=== PATIENT | female | born 1960 | race Hispanic/Latino ===

== ENCOUNTER → 2024-04-10 | Outpatient (CLI) | payer OTHER ==
--- NOTE | 2024-04-10 11:34 | HMCIMG ---
US SOFT TISSUE NECK REASON: cervical lymphadenopathy COMPARISON: None TECHNIQUE: Bilateral anterior cervical triangle ultrasound was performed. FINDINGS: There are prominent lymph nodes on the right, largest is 2.8 cm. These appear to retain normal-appearing central fatty logan. There are a few nodes on the left which are less pronounced, largest is 1.3, also within normal fatty replaced hilum. IMPRESSION: 1. Bilateral cervical lymphadenopathy more pronounced on the right.
--- NOTE | 2024-04-10 11:35 | HMCIMG ---
US ABDOMINAL COMPLETE REASON: other specified disease of liver COMPARISON: None FINDINGS: There is mild fatty infiltration of the liver. There are no focal mass lesions. The liver is not enlarged.There is a normal-appearing gallbladder. Kidneys appear normal in size and appearance. There is no evidence of mass, stone or hydronephrosis. Spleen and common duct appear normal. Aorta and inferior vena cava appear normal. The pancreas appears normal as well. IMPRESSION: 1. Mild hepatic steatosis. 2. Otherwise unremarkable exam, no focal liver mass identified.
== END | disposition home or self-care (01) ==
LOC: RAH 09:31
PROVIDERS: ATTEND Family Medicine
DX: K76.0 Fatty (change of) liver, not elsewhere classified (principal); K76.89 Other specified diseases of liver; R59.0 Localized enlarged lymph nodes; R59.1 Generalized enlarged lymph nodes
CPT/HCPCS: 76536; 76700

== ENCOUNTER → 2024-04-29 | Outpatient (CLI) | payer OTHER ==
--- NOTE | 2024-04-29 11:51 | HMCIMG ---
Diagnostic left breast mammogram and left breast ultrasound. HISTORY: ABN MAMMOGRAM COMPARISON: 03/16/2024 TECHNIQUE: Left breast digital diagnostic mammogram was performed. No additional views were obtained. FINDINGS: Parenchymal density: The breasts are almost entirely fatty. There is a focal area of soft tissue thickening inferiorly in the left breast on the MLO view. This effaces with spot compression views. There is no evidence of a persistent focal mass lesion. Remainder of the left breast is unremarkable. Left breast ultrasound shows normal findings. Particular attention to the area of parenchymal thickening shows no evidence of a focal mass lesion. There are no cysts. There is no architectural distortion or acoustical shadowing. There are normal-appearing lymph nodes in the axilla. IMPRESSION: 1. No mammographic or sonographic evidence of a malignant process in the left breast. 2. Recommend routine screening mammograms, next exam due March 2025. The patient was entered into a reminder system with a target due date for their next mammogram. BI-RADS CATEGORY 2: BENIGN FINDINGS Recommend monthly self breast exam as well as annual clinical examination. A negative x-ray should not delay biopsy if a dominant or clinically suspicious mass is present, since 8-10% of cancers are not identified by mammography. Dense breasts particularly, may obscure an underlying neoplasm. Some of these may be detected clinically and therefore, clinical examination is an essential part of breast evaluation.
== END | disposition home or self-care (01) ==
LOC: EDUNIT# 04-15 09:00 → RAH 10:18
PROVIDERS: ATTEND Family Medicine
DX: R92.312 Mammographic fatty tissue density, left breast (principal); R92.8 Other abnormal and inconclusive findings on diagnostic imaging of breast
CPT/HCPCS: 76641; 77065